=== PATIENT | male | born 1950 | race Caucasian/White ===

== ENCOUNTER 2020-06-06 09:24 | Emergency (ER) | payer OTHER ==
[~2020-06-06] VITALS: Ht 185.4 cm; Wt 124.3 kg
[2020-06-06] MEDS ORDERED: SIMVASTATIN80 MG PO (09:53)
[2020-06-06] MEDS ORDERED: TRESIBA100 UNIT/1 INJECTION (09:53)
[2020-06-06] MEDS ORDERED: HYDROCHLOROTHIA25 M2 PO (10:17)
[2020-06-06] MEDS ORDERED: ATENOLOL 25 MG25 M1 PO (10:18)
[2020-06-06] MEDS ORDERED: FLOMAX0.4 MG PO (10:18)
[2020-06-06] MEDS ORDERED: KLOR-CON 10 ER10 MEQ PO (10:19)
[2020-06-06] MEDS ORDERED: JANUVIA100 MG PO (10:19)
[2020-06-06] MEDS ORDERED: AMARYL2 M1 PO (10:19)
[2020-06-06] MEDS ORDERED: DULCOLAX10 MG RECTAL (12:56)
[2020-06-06 13:23] VITALS: BP 112/46
== END 2020-06-06 13:23 | disposition home or self-care (01) ==
LOC: ER 09:24
DX: K59.00 Constipation, unspecified (principal); Z79.4 Long term (current) use of insulin; Z79.899 Other long term (current) drug therapy; Z88.6 Allergy status to analgesic agent

== ENCOUNTER 2021-12-09 14:13 | Emergency (ER) | payer OTHER ==
[~2021-12-09] VITALS: Ht 185.4 cm; Wt 125.7 kg
[~2021-12-09 14:13] MED LIST: AMARYL2 M1 PO; ATENOLOL 25 MG25 M1 PO; DULCOLAX10 MG RECTAL; FLOMAX0.4 MG PO; HYDROCHLOROTHIA25 M2 PO; JANUVIA100 MG PO; KLOR-CON 10 ER10 MEQ PO; SIMVASTATIN80 MG PO; TRESIBA100 UNIT/1 INJECTION
[2021-12-09 14:15] VITALS: BP 101/80
[2021-12-09 17:58] LABS: BF NUCLEATED CELLS 13240 /mm3; BF RBC 11419 /mm3
[2021-12-09 18:00] LABS: CLARITY CLOUDY; COLOR YELLOW; TOTAL VOLUME 4 mL
[2021-12-09 18:39] LABS: SOURCE KNEE JOINT
[2021-12-09] MEDS ORDERED: PREDNISONE 20 M20 MG PO (18:39)
[2021-12-09] MEDS ORDERED: NORCO7.5 PO (18:39)
[2021-12-09] MEDS ORDERED: MITIGARE0.6 MG PO (18:39)
[2021-12-09 18:40] LABS: BF MACROPHAGE 6 %; BF NEUTROPHILS 76 %
[2021-12-10 08:56] LABS: SOURCE SYNOVIAL
== END 2021-12-09 19:10 | disposition home or self-care (01) ==
LOC: ER 14:13
PROVIDERS: Emergency Medicine
DX: M25.461 Effusion, right knee (principal); E11.9 Type 2 diabetes mellitus without complications; Z79.4 Long term (current) use of insulin; Z79.899 Other long term (current) drug therapy; Z88.8 Allergy status to other drugs, medicaments and biological substances